=== PATIENT | male | born 1945 | race Two or more races ===

== ENCOUNTER 2018-08-23 12:08 | Emergency (ER) | payer MEDICARE, MEDICAID ==
[~2018-08-23] VITALS: Ht 175.3 cm; Wt 95.5 kg
[2018-08-23] MEDS ORDERED: morphine 4 MG/ML inj SYRINge IV PRN (12:20)
[2018-08-23] MEDS ORDERED: normal saline 1000ML IV soln IVB ONE ×2 (12:20→15:15)
[2018-08-23] MEDS ORDERED: ondansetron/PF 4mg/2ml inj IV ONE (12:20)
[2018-08-23 12:55] LABS: BASOPHILS % (AUTO) 0.2 % (0-1); EOSINOPHILS % (AUTO) 0.2 % (0-6); HEMATOCRIT 40.5 % (42.0-52.0); HEMOGLOBIN 13.4 g/dl (14.0-17.9); LYMPHOCYTES # (AUTO) 0.3 X10'3 (1.1-4.8); LYMPHOCYTES % (AUTO) 2.6 % (21-51); MEAN CORPUSCULAR HEMOGLOBIN 35.7 PG (27.0-31.0); MEAN CORPUSCULAR HGB CONC 33.2 g/dL (33.0-36.5); MEAN CORPUSCULAR VOLUME 107.4 FL (78-98); MEAN PLATELET VOLUME 8.5 FL (7.4-10.4); MONOCYTES # (AUTO) 1.1 X10'3 (0-0.9); MONOCYTES % (AUTO) 9.9 % (2-12); NEUTROPHILS # (AUTO) 9.3 X10'3 (1.8-7.7); NEUTROPHILS % (AUTO) 87.1 % (42-75); PLATELET COUNT 135 X10'3 (140-440); RED BLOOD COUNT 3.77 X10'6 (4.70-6.10); RED CELL DISTRIBUTION WIDTH 18.4 % (11.5-14.5); WHITE BLOOD COUNT 10.7 X10'3 (4.5-11.0)
[2018-08-23 13:06] LABS: ALANINE AMINOTRANSFERASE 25 U/L (12-78); ALBUMIN 2.3 G/DL (3.4-5.0); ALKALINE PHOSPHATASE 119 IU/L (46-116); ANION GAP 9 (8-16); ASPARTATE AMINO TRANSFERASE 37 U/L (10-37); BILIRUBIN,TOTAL 6.6 MG/DL (0.1-1.0); BLOOD UREA NITROGEN 27 MG/DL (7-18); CALCIUM 9.5 MG/DL (8.5-10.1); CHLORIDE 99 MMOL/L (99-107); LIPASE 108 U/L (73-393); POTASSIUM 4.5 MMOL/L (3.5-5.1); SODIUM 134 MMOL/L (135-145); TOTAL CARBON DIOXIDE 26.1 MMOL/L (24-32); eGFR 37 ML/MIN
[2018-08-23 13:30] LABS: ALBUMIN/GLOBULIN RATIO 0.5 (1.1-1.5); GLUCOSE 103 MG/DL (70-104); INR 1.4 INR; PROTHROMBIN TIME 14.3 SECONDS (9.0-12.0); TOTAL PROTEIN 7.1 G/DL (6.4-8.2)
[2018-08-23] MEDS ORDERED: lactulose 20gm/30ml cup PO ONE (14:25)
--- NOTE | 2018-08-23 15:05 | NUR ---
US TECH AT BEDSIDE, PATIENT AWAKE, ALERT, NO SIGNS OF DISTRESS NOTED.
[2018-08-23] MEDS ORDERED: polyethylene glycol 3350 17gm powd pack PO SCH ×3 (15:49→21:00)
[2018-08-23] MEDS ORDERED: polyethylene glycol 3350 17gm powd pack PO ONE ×2 (15:49→15:50)
[2018-08-23] MEDS ORDERED: SPIR100T5 PO (16:41)
[2018-08-23] MEDS ORDERED: RIFA550T PO (16:41)
[2018-08-23] MEDS ORDERED: LACT10SO PO (16:41)
[2018-08-23] MEDS ORDERED: FURO-150 PO (16:41)
[2018-08-23] MEDS ORDERED: bisacodyl 10mg suppository rectal RC STA (17:00)
[2018-08-23] MEDS ORDERED: magnesium citrate 296ml oral solution PO ONE (17:00)
[2018-08-23] MEDS ORDERED: MAGN296S50 PO (17:08)
[2018-08-23] MEDS ORDERED: BISA10SU60 RC (17:08)
--- NOTE | 2018-08-23 17:18 | NUR ---
ASSISTING RN WITH PT CARE, PT IS RESTING QUIETLY ON GURNEY, RESP EVEN AND UNLABORED, RECEIVING LITER NS BEFORE DISCHARGE HOME
--- NOTE | 2018-08-23 18:15 | NUR ---
PT'S SISTER WILL BE ARRIVING ABOUT 1829 TO TAKE HIM HOME WHEN HE IS READY
[2018-08-23 18:46] VITALS: BP 145/82
== END 2018-08-23 18:50 | disposition home or self-care (01) ==
LOC: ER 12:09
DX: K56.0 Paralytic ileus (principal); B18.2 Chronic viral hepatitis C; R17 Unspecified jaundice; Z79.899 Other long term (current) drug therapy
CPT/HCPCS: 36415; 71045; 74018; 74176; 76700; 80053; 82140; 83690; 85025; 85610; 93005; 96361; 96374; 96375; 99284; J2270; J2405; J7030